=== PATIENT | female | born 1980 | race Caucasian/White ===

== ENCOUNTER 2016-09-19 17:50 | Emergency (ER) | payer MEDICAID, OTHER ==
[~2016-09-19] VITALS: Ht 172.7 cm; Wt 60.0 kg
[~2016-09-19 17:50] MED LIST: CYCL-36 PO; CYCL5TAB PO; HYDR10TA16 PO; NAPR500 PO; PERC10TA27 PO
[2016-09-19 17:52] VITALS: BP 151/86; PULSE 66; RESP 20; TEMP 97.7; O2SAT 99
[2016-09-19] MEDS ORDERED: diphenhydrAMINE HCL 50 MG/ML VIAL IVP ONE (18:15)
[2016-09-19] MEDS ORDERED: methylPREDNISolone SOD SUCC 125 MG/2 ML VIAL IV PUSH ONE (18:15)
[2016-09-19] MEDS ORDERED: SODIUM CHLORIDE 0.9% FLUSH 5 ML FLUSH IVF PRN (18:15)
[2016-09-19] MEDS ORDERED: SODIUM CHLOR 0.9% 1000 ML INJ 1,000 ML IV ONE (18:15)
[2016-09-19] MEDS ORDERED: METOCLOPRAMIDE HCL 10 MG/2 ML VIAL IVP ONE (18:15)
--- NOTE | 2016-09-19 18:21 | PD ---
HPI Chief Complaint: Headache Time Seen by Provider: 18:10 Travel History International Travel<30 days: No Contact w/Intl Traveler<30days: No Traveled to known affect area: No History of Present Illness HPI This is a 36-year-old female who presents for evaluation of a headache. Symptoms started 1 week ago. She reports that the headache seems to wax and wane but has progressively gotten worse throughout the week. She describes it as a stabbing pain in the left side of her head. She reports that sometimes the pain is really intense for a few seconds at a time and when it happened she feels like her vision goes "black" for a few seconds and then resolves. She has been using ibuprofen with minimal relief. Denies blurred vision, phonophobia, nausea, vomiting, fevers, chills, neck stiffness, rash, cough, congestion, sore throat. Denies any significant past medical history. No other complaints at this time. PFSH Past Medical History Asthma: Yes Anxiety: Yes Diminished Hearing: No ?: Not LMP: SEPTEMBER 2016 : 2 Para: 2 Social History Alcohol Use: Yes (OCC) Tobacco Use: Yes (1/2 PPD) Substance Use: No Allergies-Medications (Allergen,Severity, Reaction): Coded Allergies: Morphine (Verified Allergy, Severe, Dizziness, 09/19/16) pt states "I passed out." Reported Meds & Prescriptions Reported Meds & Active Scripts Active No Active Prescriptions or Reported Medications Review of Systems Except as stated in HPI: all other systems reviewed are Neg Physical Exam Narrative GENERAL: Pleasant well-developed well-nourished female in no acute distress alert and oriented SKIN: Warm and dry. HEAD: Atraumatic. Normocephalic. EYES: Pupils equal and round reactive to light extraocular muscles are intact. No scleral icterus. No injection or drainage. ENT: No nasal bleeding or discharge. Mucous membranes pink and moist. NECK: Trachea midline. No JVD. Supple full range of motion, no lymphadenopathy CARDIOVASCULAR: Regular rate and rhythm. No murmur appreciated. RESPIRATORY: No accessory muscle use. Clear to auscultation. Breath sounds equal bilaterally. GASTROINTESTINAL: Abdomen soft, non-tender, nondistended. MUSCULOSKELETAL: No obvious deformities. No clubbing. No cyanosis. No edema. NEUROLOGICAL: Awake and alert. No obvious cranial nerve deficits. Motor grossly within normal limits. Normal speech. Data Data Last Documented VS Vital Signs Date Time Temp Pulse Resp B/P Pulse Ox O2 Delivery O2 Flow Rate FiO2 09/19/16 17:52 97.7 66 20 151/86 99 Room Air Orders Complete Blood Count With Diff (09/19/16 18:15) Comprehensive Metabolic Panel (09/19/16 18:15) Prothrombin Time / Inr (Pt) (09/19/16 18:15) Act Partial Throm Time (Ptt) (09/19/16 18:15) Ct Brain W/O Iv Contrast(Rout) (09/19/16 18:15) Ecg Monitoring (09/19/16 18:15) Iv Access Insert/Monitor (09/19/16 18:15) Oximetry (09/19/16 18:15) Sodium Chloride 0.9% Flush (Ns Flush) (09/19/16 18:15) Ed Urine Pregnancytest Poc (09/19/16 18:15) Diphenhydramine Inj (Benadryl Inj) (09/19/16 18:15) Metoclopramide Inj (Reglan Inj) (09/19/16 18:15) Sodium Chlor 0.9% 1000 Ml Inj (Ns 1000 M (09/19/16 18:15) Methylprednisolone So Succ Inj (Solumedr (09/19/16 18:15) Labs Laboratory Tests Test 09/19/16 18:55 White Blood Count 7.9 TH/MM3 Red Blood Count 4.31 MIL/MM3 Hemoglobin 13.6 GM/DL Hematocrit 40.3 % Mean Corpuscular Volume 93.5 FL Mean Corpuscular Hemoglobin 31.6 PG Mean Corpuscular Hemoglobin 33.8 % Concent Red Cell Distribution Width 12.8 % Platelet Count 240 TH/MM3 Mean Platelet Volume 7.8 FL Neutrophils (%) (Auto) 59.2 % Lymphocytes (%) (Auto) 27.6 % Monocytes (%) (Auto) 8.0 % Eosinophils (%) (Auto) 4.1 % Basophils (%) (Auto) 1.1 % Neutrophils # (Auto) 4.7 TH/MM3 Lymphocytes # (Auto) 2.2 TH/MM3 Monocytes # (Auto) 0.6 TH/MM3 Eosinophils # (Auto) 0.3 TH/MM3 Basophils # (Auto) 0.1 TH/MM3 CBC Comment DIFF FINAL Differential Comment Prothrombin Time 10.2 SEC Prothromb Time International 0.9 RATIO Ratio Activated Partial 26.2 SEC Thromboplast Time Sodium Level 141 MEQ/L Potassium Level 4.1 MEQ/L Chloride Level 106 MEQ/L Carbon Dioxide Level 27.9 MEQ/L Anion Gap 7 MEQ/L Blood Urea Nitrogen 12 MG/DL Creatinine 1.02 MG/DL Estimat Glomerular Filtration 61 ML/MIN Rate Random Glucose 86 MG/DL Calcium Level 8.7 MG/DL Total Bilirubin 0.2 MG/DL Aspartate Amino Transf 15 U/L (AST/SGOT) Alanine Aminotransferase 18 U/L (ALT/SGPT) Alkaline Phosphatase 48 U/L Total Protein 6.8 GM/DL Albumin 3.9 GM/DL [facility] Medical Decision Making Medical Screen Exam Complete: Yes Emergency Medical Condition: Yes Medical Record Reviewed: Yes Interpretation(s) Urine test negative CBC unremarkable BMP creatinine 1.2, GFR [address] of the brainCONCLUSION: 1. No intracranial abnormality demonstrated. 2. Mild sinus disease. Differential Diagnosis Migraine, tension headache, intracranial mass, subarachnoid hemorrhage, pseudotumor cerebri, temporal arteritis, cluster headache, dehydration Narrative Course 36-year-old female presents with one-week history of waxing and waning left- sided headache. She has normal neurologic examination and she appears well on examination. Plan is for basic lab work, CT of the brain. The patient was given IV fluids and analgesics and she will be reassessed. CT of the brain is negative. Lab work is unremarkable. Upon reexamination the patient feels significantly improved, she is currently eating chips and texting on her phone. Headache is almost completely resolved. Her discretion of the headache is certainly consistent with a migraine. Recommended close outpatient follow-up with primary care physician and return for any acutely new or worsening symptoms. She is stable for discharge. Diagnosis Primary Impression: Migraine Qualified Code: G43.909 - Migraine without status migrainosus, not intractable , unspecified migraine type Additional Instructions: Stay well-hydrated and well-nourished. Follow-up with primary care physician and return for any new or worsening symptoms. Med/Other Pt SpecificInfo: No Change to Meds Scripts No Active Prescriptions or Reported Meds Disposition: 01 DISCHARGE HOME Condition: Stable Juan Carlos Law Sep 19, 2016 18:21
[2016-09-19 19:05] LABS: AUTOMATED NEUTROPHIL # 4.7 TH/MM3 (1.8-7.7); BASOPHIL # 0.1 TH/MM3 (0-0.2); BASOPHIL % 1.1 % (0.0-2.0); EOSINOPHIL # 0.3 TH/MM3 (0-0.4); EOSINOPHIL % 4.1 % (0.0-4.0); HEMATOCRIT 40.3 % (35.0-46.0); HEMO FLAGS DIFF FINAL; LYMPH % 27.6 % (9.0-44.0); LYMPHOCYTE # 2.2 TH/MM3 (1.0-4.8); MEAN CELL VOLUME 93.5 FL (80.0-100.0); MEAN CORPUSCULAR HEMOGLOBIN 31.6 PG (27.0-34.0); MEAN CORPUSCULAR HGB CONC 33.8 % (32.0-36.0); NEUT % 59.2 % (16.0-70.0); PLATELET COUNT 240 TH/MM3 (150-450); RED BLOOD COUNT 4.31 MIL/MM3 (4.00-5.30); RED CELL DISTRIBUTION WIDTH 12.8 % (11.6-17.2); WHITE BLOOD COUNT 7.9 TH/MM3 (4.0-11.0)
[2016-09-19 19:12] LABS: APTT (PATIENT) 26.2 SEC (24.3-30.1); INTERNATIONAL NORMALIZED RATIO 0.9 RATIO; PROTHROMBIN TIME - PATIENT 10.2 SEC (9.8-11.6)
[2016-09-19 19:36] LABS: ANION GAP 7 MEQ/L (5-15); AST (GOT) 15 U/L (15-37); BICARBONATE 27.9 MEQ/L (21.0-32.0); BLOOD UREA NITROGEN 12 MG/DL (7-18); CHLORIDE 106 MEQ/L (98-107); GLOMERULAR FILTRATION RATE 61 ML/MIN (>89); POTASSIUM 4.1 MEQ/L (3.5-5.1); SODIUM (NA) 141 MEQ/L (136-145)
[2016-09-19 19:39] LABS: ALKALINE PHOSPHATASE 48 U/L (45-117); ALT (GPT) 18 U/L (10-53); TOTAL BILIRUBIN ADULT 0.2 MG/DL (0.2-1.0)
--- NOTE | 2016-09-19 20:43 | RADRPT ---
EXAM DATE/TIME: 09/19/2016 20:25 [facility] COMPARISON: No previous studies available for comparison. INDICATIONS : Cephalgia. RADIATION DOSE: 42.43 CTDIvol (mGy) MEDICAL HISTORY : None SURGICAL HISTORY : None. ENCOUNTER: Initial ACUITY: 1 day PAIN SCALE: 6/10 LOCATION: cranial TECHNIQUE: Multiple contiguous axial images were obtained of the head. Using automated exposure control and adj ustment of the mA and/or kV according to patient size, radiation dose was kept as low as reasonably a chievable to obtain optimal diagnostic quality images. FINDINGS: CEREBRUM: The ventricles are normal for age. No evidence of midline shift, mass lesion, hemorrhage or acute in farction. No extra-axial fluid collections are seen. POSTERIOR FOSSA: The cerebellum and brainstem are intact. The 4th ventricle is midline. The cerebellopontine angle i s unremarkable. EXTRACRANIAL: There is mild mucoperiosteal thickening of the visualized ethmoid air cells. SKULL: The calvaria is intact. No evidence of skull fracture. CONCLUSION: 1. No intracranial abnormality demonstrated. 2. Mild sinus disease. Lyle Avalos MD on September 19, 2016 at 20:40 Board Certified Radiologist. This report was verified electronically.
[2016-09-19] MEDS ORDERED: KETOROLAC TROMETHAMINE 30 MG/ML (IVP) VIAL IV PUSH ONE (21:00)
== END 2016-09-19 22:25 | disposition home or self-care (01) ==
LOC: NEPC 17:50
DX: G43.909 Migraine, unspecified, not intractable, without status migrainosus (principal); F17.210 Nicotine dependence, cigarettes, uncomplicated
CPT/HCPCS: 70450; 80053; 84703; 85025; 85610; 85730; 96374; 96375; 99284; J1200; J1885; J2765; J2930; J7030

== ENCOUNTER 2016-10-30 13:36 | Emergency (ER) | payer MEDICAID, OTHER ==
[~2016-10-30] VITALS: Ht 172.7 cm; Wt 58.2 kg
[2016-10-30 13:38] VITALS: BP 139/94; PULSE 90; RESP 20; TEMP 99.3; O2SAT 99
--- NOTE | 2016-10-30 13:47 | PD ---
Physical Exam Date Seen by Provider: Oct 30, 2016 Time Seen by Provider: 13:40 Narrative 36 y/o female with Hx. fall onto buttocks 10 days ago while rollerskating. Patient states worsening pain in lower back with intermittent bilateral lower extremity numbness and hand numbness since. Patient ambulatory, and prefers not to sit. Patient denies weakness, bowel or bladder issues or headache. Pain now 7/10. Patient has been taking Ibuprofen without improvement. V/S Stable. Patient awaiting bed placement. Data Data Last Documented VS Vital Signs Date Time Temp Pulse Resp B/P Pulse Ox O2 Delivery O2 Flow Rate FiO2 10/30/16 13:38 99.3 90 20 139/94 99 Room Air [facility] Medical Record Reviewed: Yes Supervised Visit with RELL: Yes Scripts No Active Prescriptions or Reported Meds Condition: Stable Pb Whaley Oct 30, 2016 13:47
--- NOTE | 2016-10-30 14:04 | PD ---
HPI Chief Complaint: Injury Time Seen by Provider: 14:04 Travel History International Travel<30 days: No Contact w/Intl Traveler<30days: No Traveled to known affect area: No History of Present Illness HPI Patient 36-year-old female presents emergency department for complaints of low back pain as well as tailbone pain. Patient states the proximal LAD week ago she was at a roller skating rink and fell backwards. 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 Patient states that she's been sitting on a ring down at home but started developing some numbness and tingling in her feet as well as her bilateral upper extremities. Denies any weakness. Denies any saddle anesthesia or difficulty urinating. Denies any fevers. She denies any difficulty with stooling. Denies any head injury chest injury abdominal injury. She states the pain has been gradually worsening she's been putting ice and heat on it but nothing works. PFSH Past Medical History Asthma: Yes Anxiety: Yes Diminished Hearing: No Immunizations Current: Yes Influenza Vaccination: No ?: Not LMP: 10/18/2016 : 2 Para: 2 Social History Alcohol Use: Yes (OCC) Tobacco Use: Yes (1/2 PPD) Substance Use: No Allergies-Medications (Allergen,Severity, Reaction): Coded Allergies: Morphine (Verified Allergy, Severe, Dizziness, 10/30/16) pt states "I passed out." Reported Meds & Prescriptions Reported Meds & Active Scripts Active Campbell (Hydrocodone-Acetaminophen) 5-325 mg Tab 1 Tab PO Q6H PRN Review of Systems Except as stated in HPI: all other systems reviewed are Neg Physical Exam Narrative GENERAL: Well-developed well-nourished no apparent distress. Appears older than stated age. SKIN: Warm and dry. No ecchymosis no lacerations seen. HEAD: Atraumatic. Normocephalic. EYES: Pupils equal and round. No scleral icterus. No injection or drainage. ENT: No nasal bleeding or discharge. Mucous membranes pink and moist. NECK: Trachea midline. No JVD. CARDIOVASCULAR: Regular rate and rhythm. RESPIRATORY: No accessory muscle use. Clear to auscultation. Breath sounds equal bilaterally. GASTROINTESTINAL: Abdomen soft, non-tender, nondistended. Hepatic and splenic margins not palpable. MUSCULOSKELETAL: Extremities without clubbing, cyanosis, or edema. No obvious deformities. Minimal midline tenderness in the low T or high L-spine. No step- off appreciated. NEUROLOGICAL: Awake and alert. No obvious cranial nerve deficits. Motor grossly within normal limits. Five out of 5 muscle strength in the arms and legs. Normal speech. Ambulates even with a narrow based gait. DTRs are 2+ at patella and biceps equal bilaterally. Pulses motor and sensory equal bilaterally. PSYCHIATRIC: Appropriate mood and affect; insight and judgment normal. Data Data Last Documented VS Vital Signs Date Time Temp Pulse Resp B/P Pulse Ox O2 Delivery O2 Flow Rate FiO2 10/30/16 13:38 99.3 90 20 139/94 99 Room Air Orders Urinalysis - C+S If Indicated (10/30/16 13:46) Ed Urine Pregnancytest Poc (10/30/16 13:46) Spine, Thoracic-Ap/Lat/Sw(3vw) (10/30/16 ) Spine, Lumbar Comp W/Obliq (10/30/16 ) Pelvis, Ap Only (Routine) (10/30/16 ) MDM Medical Decision Making Medical Screen Exam Complete: Yes Emergency Medical Condition: Yes Differential Diagnosis Back fracture, pelvic fracture, degenerative disc disease, radiculopathy, cauda equina excluded clinically. Narrative Course Patient was roomed in the emergency department, Last 24 hours Impressions Thoracic Spine X-Ray 10/30/16 0000 Signed Impressions: Service Date/Time: Sunday, October 30, 2016 14:51 - CONCLUSION: Negative exam. Levar Brandt MD Pelvis X-Ray 10/30/16 0000 Signed Impressions: Service Date/Time: Sunday, October 30, 2016 14:50 - CONCLUSION: Asymmetric appearance to the left ischial tuberosity, with some angulation on the left side, but no definite fracture lucency. Recommend correlation with clinical exam for point tenderness in this area. Levar Brandt MD Lumbar Spine X-Ray 10/30/16 0000 Signed Impressions: Service Date/Time: Sunday, October 30, 2016 14:51 - CONCLUSION: No evidence of compression deformity or spondylolisthesis. Levar Brandt MD She is driving home and states she's been taking Tylenol and ibuprofen at home as well and declined anything for pain. She declined any pain medicine when offered in the emergency department. She is planning on driving home excluding any narcotic use here. Patient x-ray results were discussed with the patient and I have reviewed the findings of the pelvis x-ray with her and I think is unlikely that she has a fracture and even if this does represent a fracture it would be a full weight-bearing and nonoperative fracture. Discussed with her she needs to consider following up with an orthopedic surgeon. May need an MRI in the future as well however at this time there is no noted dictation for emergent MRI. She stable for discharge Diagnosis Primary Impression: Low back pain Qualified Code: M54.5 - Acute midline low back pain without sciatica Referrals: Quintin Vaca MD Med/Other Pt SpecificInfo: Prescription(s) given Scripts Hydrocodone-Acetaminophen (Campbell)5-325 mg Tab1 Tab PO Q6H PRN (PAIN) #15 TAB Ref 0 Prov:Edward Hernandez MD 10/30/16 Disposition: 01 DISCHARGE HOME Condition: Stable Edward Hernandez MD Oct 30, 2016 14:04
--- NOTE | 2016-10-30 15:30 | RADRPT ---
EXAM DATE/TIME: 10/30/2016 14:50 [facility] COMPARISON: No previous studies available for comparison. INDICATIONS : Pelvic Pain post fall MEDICAL HISTORY : None. SURGICAL HISTORY : ENCOUNTER: Initial ACUITY: 1 day PAIN SCORE: 9/10 LOCATION: Bilateral pelvis FINDINGS: Frontal view of the pelvis no significant rotation of the patient. Iliac wings are symmetric and int act. The proximal femora and acetabulum are intact. 2 arcuate lines are seen in the sacrum both kelsea es and are intact. There is an asymmetry to the ischial tuberosity on the left side, slightly more a ngulated on the right. No definite fracture lucency seen. The superior pubic ramus is intact bilate rally. CONCLUSION: Asymmetric appearance to the left ischial tuberosity, with some angulation on the left side, but no d efinite fracture lucency. Recommend correlation with clinical exam for point tenderness in this area . Levar Brandt MD on October 30, 2016 at 15:26 Board Certified Radiologist. This report was verified electronically.
--- NOTE | 2016-10-30 15:31 | RADRPT ---
EXAM DATE/TIME: 10/30/2016 14:51 [facility] COMPARISON: No previous studies available for comparison. INDICATIONS : Low back pain MEDICAL HISTORY : None. SURGICAL HISTORY : None. ENCOUNTER: Initial ACUITY: 1 day PAIN SCORE: 9/10 LOCATION: Bilateral Low back FINDINGS: There are 5 nonrib-bearing vertebral bodies. In lateral projection, vertebral bodies are in normal a lignment there is preservation of vertebral body height. Frontal projection, there is a mild curvatu re towards the left. Pedicles and transverse processes are intact. SI joints are symmetric. On the oblique views, the facet joints are intact. Metallic density projected over lower abdomen probably represents a umbilical ring. CONCLUSION: No evidence of compression deformity or spondylolisthesis. Levar Brandt MD on October 30, 2016 at 15:28 Board Certified Radiologist. This report was verified electronically.
--- NOTE | 2016-10-30 15:31 | RADRPT ---
EXAM DATE/TIME: 10/30/2016 14:51 [facility] COMPARISON: No previous studies available for comparison. INDICATIONS : Upper back pain MEDICAL HISTORY : None. SURGICAL HISTORY : None. ENCOUNTER: Initial ACUITY: 1 day PAIN SCORE: 10/10 LOCATION: Bilateral chest FINDINGS: There is normal alignment of the thoracic vertebral bodies. Vertebral body height is maintained. No evidence of fracture or subluxation. Pedicles are intact at all levels. The paravertebral reflecti ons are not thickened. CONCLUSION: Negative exam. Levar Brandt MD on October 30, 2016 at 15:29 Board Certified Radiologist. This report was verified electronically.
[2016-10-30] MEDS ORDERED: NORC5TAB PO (15:35)
[2016-10-30 16:12] LABS: BLOOD, URINE NEG (NEG); COMMENT (UR) CULT NOT INDICATED; CULTURE IF INDICATED CULT NOT INDICATED; GLUCOSE,URINE NEG (NEG); KETONE, URINE NEG (NEG); MUCUS URINE FEW /lpf (OCC); NITRITE,URINE NEG (NEG); PH, URINE 6.5 (5.0-8.5); URINE COLOR YELLOW (YELLW/STRAW)
== END 2016-10-30 16:07 | disposition home or self-care (01) ==
LOC: NEPD 13:36
DX: M54.5 Low back pain (principal); R20.0 Anesthesia of skin; F17.200 Nicotine dependence, unspecified, uncomplicated; Z87.09 Personal history of other diseases of the respiratory system; Z86.59 Personal history of other mental and behavioral disorders; W18.39XA Other fall on same level, initial encounter; Y93.51 Activity, roller skating (inline) and skateboarding
CPT/HCPCS: 72072; 72110; 72170; 81001; 84703; 99283

== ENCOUNTER 2017-05-14 17:25 | Emergency (ER) | payer MEDICAID ==
[~2017-05-14] VITALS: Ht 172.7 cm; Wt 58.0 kg
[~2017-05-14 17:25] MED LIST changes: -CYCL-36 PO; -CYCL5TAB PO; -HYDR10TA16 PO; -NAPR500 PO; +NORC5TAB PO; -PERC10TA27 PO
[2017-05-14 17:27] VITALS: BP 148/75; PULSE 78; RESP 16; TEMP 98.7; O2SAT 99
--- NOTE | 2017-05-14 19:35 | PD ---
HPI Chief Complaint: Pain: Acute or Chronic Time Seen by Provider: 19:24 Travel History International Travel<30 days: No Contact w/Intl Traveler<30days: No Traveled to known affect area: No History of Present Illness HPI 36-year-old white female presents to emergency department complaints of recurrent lower back pain. She states that she's had back pain on and off for some time. She states in the last 2 weeks is exacerbated. 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 She states the pain is moderate but can be severe. She states pain radiates from her tailbone up around her lower back and sometimes to her left hip. She says some increased urinary frequency but denies any hematuria, dysuria or vaginal complaints. No fever chills. No nausea vomiting. Symptoms are worse with standing, bending and movement. Some relief with remaining still. History Past Medical Histgory Narrative Medical Left hand fracture, back pain Tetanus Vaccination: < 5 Years Past Surgical History Narrative Surgical Left hand fracture with ORIF Social History Alcohol Use: Yes (OCC) Tobacco Use: Yes (1/2 PPD) Allergies-Medications (Allergen,Severity, Reaction): Coded Allergies: morphine (Unverified Allergy, Severe, Dizziness, 05/14/17) pt states "I passed out." Reported Meds & Prescriptions Reported Meds & Active Scripts Active No Active Prescriptions or Reported Medications Review of Systems General / Constitutional: No: Fever Eyes: No: Visual changes HENT: No: Headaches Cardiovascular: No: Chest Pain or Discomfort Respiratory: No: Shortness of Breath Gastrointestinal: No: Abdominal Pain Genitourinary: Positive: Frequency, No: Urgency, Dysuria, Hematuria Musculoskeletal: Positive: Arthralgias, Cramping, Pain, No: Limited ROM, Weakness, Edema Skin: No Rash Neurologic: No: Weakness Psychiatric: No: Depression Endocrine: No: Polydipsia Hematologic/Lymphatic: No: Easy Bruising Physical Exam Narrative GENERAL: Well-developed, well-nourished in no acute distress. Nontoxic appearing. HEAD: Normocephalic, atraumatic. EYES: Pupils equal round and reactive. Extraocular motions intact. No scleral icterus. No injection or drainage. ENT: TMs clear without erythema. The external auditory canals clear. Nose: clear . Posterior pharynx is pink and moist. No tonsillar edema or exudate. Uvula midline. Airway patent. NECK: Trachea midline.Supple, nontender, moves head freely. No central bony tenderness or spasm. CARDIOVASCULAR: Regular rate and rhythm without murmurs, gallops, or rubs. RESPIRATORY: Clear to auscultation. Breath sounds equal bilaterally. No wheezes , rales, or rhonchi. GASTROINTESTINAL: Abdomen soft, non-tender, nondistended. No hepato-splenomegaly , or palpable masses. No guarding. EXTREMITIES: No clubbing, cyanosis, or edema. No joint tenderness, effusion, or edema noted. BACK: No central bony tenderness palpation of dorsal lumbar spine. Patient has complaints of myofascial tenderness in the lower lumbar spine more so on the left than the right. Negative straight leg raise. No saddle anesthesia. No gross spasm. Able to heel and toe stand. Without deformity or crepitance. No flank tenderness. Data Data Last Documented VS Vital Signs Date Time Temp Pulse Resp B/P (MAP) Pulse Ox O2 Delivery O2 Flow Rate FiO2 05/14/17 17:27 98.7 78 16 148/75 (99) 99 [facility] Medical Screen Exam Complete: Yes Emergency Medical Condition: Yes Differential Diagnosis MDM: High Differential diagnoses: AAA,Fracture, sprain, strain, HNP, nerve or vascular injury, epidural abscess, pilonidal cyst, pyelonephritis, UTI, nephrolithiasis, ureterolithiasis Narrative Course A medical screening exam was performed: At the time of evaluation the presenting medical condition was determined not to be of an emergent nature. The patient was given the option of receiving additional care, but declined. Patient was given options for additional community resources from which to obtain care. The Patient Has Been advised to seek medical attention for their presenting complaint. The patient has been advised to return to the ER at any time if an emergent condition develops. Primary Impression: Encounter for medical screening examination Scripts No Active Prescriptions or Reported Meds Condition: Tj Browning May 14, 2017 19:35
== END 2017-05-14 19:44 | disposition left against medical advice (07) ==
LOC: NEPD 17:25
DX: M54.5 Low back pain (principal)
CPT/HCPCS: 99281

== ENCOUNTER → 2017-09-28 | Outpatient (CLI) | payer OTHER | LOC: HPND 10:09 | PROVIDERS: ATTEND Family Medicine | DX: O09.512 Supervision of elderly primigravida, second trimester (principal) | CPT/HCPCS: 36415; 76811; 76825; 76827; 93325 ==

== ENCOUNTER 2017-10-03 12:48 | Emergency (ER) | payer OTHER ==
[2017-10-03 13:56] VITALS: BP 113/72; PULSE 84; RESP 18; TEMP 97.6; O2SAT 99
[2017-10-03 15:02] LABS: AUTOMATED NEUTROPHIL # 9.9 TH/MM3 (1.8-7.7); BASOPHIL # 0.1 TH/MM3 (0-0.2); BASOPHIL % 0.7 % (0.0-2.0); BILIRUBIN, URINE NEG (NEG); BLOOD, URINE NEG (NEG); EOSINOPHIL # 0.2 TH/MM3 (0-0.4); EOSINOPHIL % 1.2 % (0.0-4.0); GLUCOSE,URINE NEG (NEG); HEMATOCRIT 38.6 % (35.0-46.0); HEMOGLOBIN 13.2 GM/DL (11.6-15.3); KETONE, URINE TRACE mg/dL (NEG); LYMPH % 14.1 % (9.0-44.0); LYMPHOCYTE # 1.8 TH/MM3 (1.0-4.8); MEAN CELL VOLUME 92.3 FL (80.0-100.0); MEAN CORPUSCULAR HEMOGLOBIN 31.5 PG (27.0-34.0); MEAN CORPUSCULAR HGB CONC 34.1 % (32.0-36.0); MONO % 5.8 % (0.0-8.0); MONOCYTE # 0.7 TH/MM3 (0-0.9); NEUT % 78.2 % (16.0-70.0); NITRITE,URINE NEG (NEG); PLATELET COUNT 266 TH/MM3 (150-450); RED BLOOD COUNT 4.18 MIL/MM3 (4.00-5.30); RED CELL DISTRIBUTION WIDTH 12.7 % (11.6-17.2); SQUAMOUS EPITHELIAL CELL URINE 2 /hpf (0-5); URINE COLOR YELLOW (YELLW/STRAW); URINE LEUKOCYTE ESTERASE MOD (NEG); WHITE BLOOD COUNT 12.7 TH/MM3 (4.0-11.0)
[2017-10-03 15:15] LABS: ALBUMIN 3.2 GM/DL (3.4-5.0); AST (GOT) 14 U/L (15-37); BICARBONATE 22.5 MEQ/L (21.0-32.0); BLOOD UREA NITROGEN 6 MG/DL (7-18); CALCIUM 8.7 MG/DL (8.5-10.1); CHLORIDE 107 MEQ/L (98-107); CREATININE 0.51 MG/DL (0.50-1.00); GLOMERULAR FILTRATION RATE 135 ML/MIN (>89); GLUCOSE,RANDOM 77 MG/DL (74-106); SODIUM (NA) 139 MEQ/L (136-145)
[2017-10-03 15:20] LABS: ALKALINE PHOSPHATASE 61 U/L (45-117); ALT (GPT) 17 U/L (10-53); TOTAL BILIRUBIN ADULT 0.2 MG/DL (0.2-1.0); TOTAL PROTEIN 7.1 GM/DL (6.4-8.2)
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
== END 2017-10-03 17:43 | disposition home or self-care (01) ==
LOC: NED 12:48 → NEPD 17:43
DX: O26.899 Other specified pregnancy related conditions, unspecified trimester (principal); R10.84 Generalized abdominal pain; Z3A.00 Weeks of gestation of pregnancy not specified
CPT/HCPCS: 76815; 80053; 81001; 85025; 99284

== ENCOUNTER → 2017-10-26 | Outpatient (CLI) | payer OTHER | LOC: HPND 09:47 | PROVIDERS: ATTEND Family Medicine | DX: O09.522 Supervision of elderly multigravida, second trimester (principal) | CPT/HCPCS: 76816 ==

== ENCOUNTER 2018-01-17 15:55 | Inpatient (IN) ==
[2018-01-17] MEDS ORDERED: Measles/Mumps/Rubella Vaccine Inj 0.5 ML Vial SQ ONE (16:00)
[2018-01-17] MEDS ORDERED: Diphtheria/Tetanus/Pertussis Vaccine Inj 0.5 ML Syringe IM ONE (16:00)
[2018-01-17] MEDS ORDERED: fentaNYL Citrate Inj 100 MCG/2 ML Ampul IV.PUSH ONE (17:03)
--- NOTE | 2018-01-17 18:09 | P.HPOB ---
History of Present Illness Service: January 17, 2018 Primary Care Physician: Ramiro Duvall MD, R3 Chief Complaint: Contractions History of Present Illness: Patient is a 37 year old at 38 weeks and 6 days who presents to OB triage with contractions. She reports contractions for the past two weeks with increased frequency and intensity for the past two days. She had some bloody show today and minimal fluid leakage x1 this morning. She reports appropriate movement. She has a mild headache. She denies right upper quadrant pain. She denies lower extremity edema. Weeks Gestation:: 38 Para: 2 : 3 - Inpatient Certification I certify that the inpatient services were ordered in accordance with Medicare regulations governing the order. This includes certification that hospital inpatient services are reasonable and necessary and in the case of services not specified as inpatient-only under 42 CFR 419.22(n), that they are appropriately provided as inpatient services in accordance to with the 2-midnight benchmark under 43 CFR 412.3(e) Estimated Total Length of Stay (Days): 2 Plans for Post Hospital Care: Home Review of Systems All systems are negative unless otherwise noted in HPI. [facility] - History History Provided By: Patient - Medical History Medical History: Medical History (Last Updated 01/17/18 @ 18:30 by Hilaria Becker MD, R1) Asthma - Surgical History Surgical History: Surgical History (Last Updated 01/17/18 @ 18:32 by Hilaria Becker MD, R2) H/O hand surgery - Family History Family History: Family History (Last Updated 01/17/18 @ 18:33 by Hilaria Becker MD, R2) Other No significant family history - Tobacco History Smoking Status: Smoker, status unknown Tobacco Type: Cigarettes Packs Per Day: 0.5 - Alcohol History How Often Do You Have a Drink Containing Alcohol: Monthly or less (Not currently ) - Substance Use History Substance History: No History of Abuse - Travel History History of Recent Travel: No Recent Travel in the [place] Within the Last 8 Weeks: No Recent Travel Out of the Country Within the Last 8 Weeks: No Medications and Allergies Allergies Allergy/AdvReac Type Severity Reaction Status Date / Time morphine AdvReac Severe Dizziness Verified 01/17/18 19:57 Home Medications Medication Instructions Recorded Confirmed Type prenat.vits,butch,oop-jlxi-yqolh 1 tab PO DAILY 07/10/18 07/10/18 History [ Vitamin] Active Medications: Active Medications Lactated Ringer's (Lr 1000 Ml Inj) 1,000 mls @ 125 mls/hr IV.CONT .Q8H LUPILLO Last Admin: 01/17/18 17:18 Dose: 125 mls/hr Exam Vital signs: Vital Signs 01/17/18 16:27 01/17/18 16:28 Temperature 97.5 F L Pulse Rate 79 Respiratory Rate 20 Blood Pressure 116/88 - Constitutional no acute distress - Routine HEENT Exam Head: Present: normocephalic, atraumatic Eye: Present: EOMI ENT: Present: mucous membranes moist - Routine Neck Exam Present: supple, full ROM. Absent: JVD - Routine Chest/Breast/Axilla Exam Chest wall: Absent: tenderness Breast: Absent: tenderness - Routine Respiratory Exam Present: CTA bilaterally. Absent: accessory muscle use, decreased breath sounds , respiratory distress - Routine Cardiovascular Exam Present: RRR, S1, S2. Absent: murmur, gallop - Routine Abdominal Exam Comments: Gravid, fundus non-tender - Routine Exam Comments: 5-6cm/80%/VTX/-2/bulging bag - Routine Extremities Exam Absent: edema - Routine Skin Exam Present: intact. Absent: rash - Routine Neurological Exam Present: alert, oriented X3, CN II-XII intact - Additional findings Additional findings: heart tone: 140 Moderate variability. No decelerations. Reactive. Category 1 tracing. Contractions: q3-5min. Results - Labs CBC & Chem 7: 01/17/18 17:55 Group B Strep: Negative Caprini VTE Risk Assessment Caprini VTE Risk Assessment: No/Low Risk (score <= 1) Caprini Risk Assessment Model: Point Value = 1 Point Value = 2 Point Value = 3 Point Value = 5 Age 41-60 Minor surgery BMI > 25 kg/m2 Swollen legs Varicose veins or History of unexplained or recurrent spontaneous Oral contraceptives or hormone replacement Sepsis (< 1 month) Serious lung disease, including pneumonia (< 1 month) Abnormal pulmonary function Acute myocardial infarction Congestive heart failure (< 1 month) History of inflammatory bowel disease Medical patient at bed rest Age 61-74 Arthroscopic surgery Major open surgery (> 45 min) Laparoscopic surgery (> 45 min) Malignancy Confined to bed (> 72 hours) Immobilizing plaster cast Central venous access Age >= 75 History of VTE Family history of VTE Factor V Leiden Prothrombin [id number] Lupus anticoagulant Anticardiolipin antibodies Elevated serum homocysteine Heparin-induced thrombocytopenia Other congenital or acquired thrombophilia Stroke (< 1 month) Elective arthroplasty Hip, pelvis, or leg fracture Acute spinal cord injury (< 1 month) Prophylaxis Regimen: Total Risk Factor Score Risk Level Prophylaxis Regimen 0-1 Low Early ambulation 2 Moderate Order ONE of the following: *Sequential Compression Device (SCD) *Heparin 5000 units SQ BID 3-4 Higher Order ONE of the following medications: *Heparin 5000 units SQ TID *Enoxaparin/Lovenox 40 mg SQ daily (WT < 150 kg, CrCl > 30 mL/min) *Enoxaparin/Lovenox 30 mg SQ daily (WT < 150 kg, CrCl > 10-29 mL/min) *Enoxaparin/Lovenox 30 mg SQ BID (WT < 150 kg, CrCl > 30 mL/min) AND/OR *Sequential Compression Device (SCD) 5 or more Highest Order ONE of the following medications: *Heparin 5000 units SQ TID (Preferred with Epidurals) *Enoxaparin/Lovenox 40 mg SQ daily (WT < 150 kg, CrCl > 30 mL/min) *Enoxaparin/Lovenox 30 mg SQ daily (WT < 150 kg, CrCl > 10-29 mL/min) *Enoxaparin/Lovenox 30 mg SQ BID (WT < 150 kg, CrCl > 30 mL/min) AND *Sequential Compression Device (SCD) Assessment and Plan - Diagnosis (1) Admitted to labor and delivery Code(s): Z78.9 - Other specified health status Status: Acute - Plan Patient is a 37 year old at 38 weeks and 6 days who presents to OB triage with contractions. * Admit to Labor and Delivery. * Routine intrapartum care. * GBS negative. * Category 1 tracing. * Patient desires epidural. * Patient's OB provider, Dr. Duvall, contacted. OB hospitalist. - Attending Attestation The patient was seen and evaluated by me and I participated in all vinson decision making, will admit for labor at term, continue monitoring, anticipate . Discussed risks of , risks and indications of delivery. SMS
[2018-01-17] MEDS ORDERED: Oxytocin 30 Units/500ml Premix 30 UNITS/500 ML BAG IV.SIG ONE (18:10)
[2018-01-17] MEDS ORDERED: Sod Chloride 0.9% Inj 1,000 ML IV.CONT PRN (18:10)
[2018-01-17] MEDS ORDERED: Naloxone Inj 0.4 MG/ML Vial IV.PUSH PRN ×2 (18:10→22:59)
[2018-01-17] MEDS ORDERED: Sodium Chlor 0.9% Inj 500 ML IV.SIG PRN (18:10)
[2018-01-17] MEDS ORDERED: fentaNYL Citrate Inj 100 MCG/2 ML Ampul IV.PUSH PRN ×2 (18:10)
[2018-01-17] MEDS ORDERED: Citric Acid/Sodium Citrate Liq 30 ML UDC PO SCH (18:15)
[2018-01-17 18:31] LABS: Baso # (Auto) 0.1 th/mm3 (0.0-0.2); Baso % (Auto) 0.8 % (0.0-2.0); Eos % (Auto) 0.4 % (0.0-4.0); Hemoglobin 13.7 gm/dL (11.6-15.3); Lymph # (Auto) 1.6 th/mm3 (1.0-4.8); Lymph % (Auto) 16.2 % (9.0-44.0); Mean Corpuscular HGB Conc 33.5 % (32.0-36.0); Mean Corpuscular Volume 92.7 fL (80.0-100.0); Mean Platelet Volume 9.5 fL (7.0-11.0); Mono # (Auto) 0.7 th/mm3 (0.0-0.9); Mono % (Auto) 6.8 % (0.0-8.0); Neut # (Auto) 7.7 th/mm3 (1.8-7.7); Neut % (Auto) 75.8 % (16.0-70.0); Platelet Count 260 th/mm3 (150-450); Red Blood Count 4.42 mil/mm3 (4.00-5.30); White Blood Count 10.2 th/mm3 (4.0-11.0)
[2018-01-17] MEDS ORDERED: fentaNYL 2MCG-Bupiv 0.125% Epi 150 ML EPIDURAL ONE (19:02)
[2018-01-17 20:40] LABS: Bilirubin,Urine Negative (Negative); Clarity,Urine Hazy (Clear); Color,Urine Amber (Yellw/Straw); Glucose,Urine (UA) Negative (Negative); Leukocyte Esterase,Urine Small (Negative); Mucus,Urine Few /lpf (Occasional); Nitrite,Urine Negative (Negative); Specific Gravity,Urine 1.024 (1.002-1.035); Squamous Epithelial Cell,Urine 9 /hpf (0-5); Urobilinogen,Urine 4 or Greater mg/dL (Less than 2)
[2018-01-17] MEDS ORDERED: fentaNYL Citrate Inj 100 MCG/2 ML Ampul EPIDURAL ONE (21:24)
[2018-01-17] MEDS ORDERED: fentaNYL 2MCG-Bupiv 0.125% Epi 150 ML EPIDURAL PRN ×3 (21:42→22:00)
[2018-01-17 21:43] LABS: Amphetamine Urine With Conf Neg (Neg); Benzodiazepine Urine With Conf Neg (Neg)
--- NOTE | 2018-01-17 21:59 | P.OBLABOR ---
Subjective Interval history: Patient evaluated by OB team. Epidural in place without complications with appropriate pain control. She endorses good movement and is currently without complaints. Objective Vital Signs: Vital Signs - 8 hr 01/17/18 16:27 01/17/18 16:28 01/17/18 19:10 Temperature 97.5 F L Pulse Rate 79 90 Respiratory Rate 20 Blood Pressure 116/88 146/85 H 01/17/18 19:25 01/17/18 19:55 01/17/18 20:10 Temperature Pulse Rate 76 87 85 Respiratory Rate Blood Pressure 115/63 111/65 01/17/18 20:15 01/17/18 20:30 01/17/18 21:16 Temperature 97.7 F Pulse Rate 84 80 Respiratory Rate 15 Blood Pressure 120/61 109/63 01/17/18 21:31 Temperature Pulse Rate 81 Respiratory Rate Blood Pressure 106/71 Objective: Pelvic Exam: Cervix: Mid position Dilatation: 6 cm Effacement: 80% Station: -2 Presentation: Vertex Membranes: AROM completed with clear fluid Uterine Contractions: Every 2-4 minutes FHT's: Category: 1 Baseline: 120s Reactive: Positive Variability: Moderate Decels: None Artificial Rupture of Membrane: Yes (Clear) Artificial ROM Date: 01/17/18 Artificial ROM Time: 21:40 Assessment and Plan - Diagnosis (1) Admitted to labor and delivery Code(s): Z78.9 - Other specified health status Status: Acute - Plan Patient is a 37 year old at 38 weeks and 6 days who presents to OB triage with contractions. * Continue routine intrapartum care. * GBS negative. * Category 1 tracing. * Epidural in place without complications, appropriate pain control currently * UDS positive for marijuana * AROM completed with clear fluid, uncomplicated procedure SDW: Dr. Juarez - Attending Attestation Continue labor management, reassuring status, anticipate . SMS
[2018-01-17] MEDS ORDERED: Lidocaine PF 1% Inj 30 ML Vial ONE (22:00)
--- NOTE | 2018-01-17 22:47 | P.PN ---
Subjective Interval history: The patient quickly progressed with reassuring heart tones to complete/ complete/+2 after AROM. The patient commenced spontaneous maternal expulsive efforts with overall reassuring heart tones and with subsequent atraumatic and spontaneous delivery of the head followed by atraumatic and spontaneously delivery of the anterior shoulder and remainder of the . The was vigorous at delivery and was placed on the maternal abdomen. The cord was doubly clamped and cut after a delay of 45 seconds. Cord blood was obtained for the nursery and the placenta delivered spontaneously. The placenta appeared to be intact. No lacerations were noted except a superficial labial laceration as noted in delivery report. The and mother are both doing well. I was present and scrubbed for all vinson portions of the procedure. Physical Exam Vital signs: Vital Signs 01/17/18 16:27 01/17/18 16:28 01/17/18 19:10 Temperature 97.5 F L Pulse Rate 79 90 Respiratory Rate 20 Blood Pressure 116/88 146/85 H 01/17/18 19:25 01/17/18 19:55 01/17/18 20:10 Temperature Pulse Rate 76 87 85 Respiratory Rate Blood Pressure 115/63 111/65 01/17/18 20:15 01/17/18 20:30 01/17/18 21:16 Temperature 97.7 F Pulse Rate 84 80 Respiratory Rate 15 Blood Pressure 120/61 109/63 01/17/18 21:31 01/17/18 22:00 01/17/18 22:16 Temperature Pulse Rate 81 70 Respiratory Rate Blood Pressure 106/71 113/71 113/75 Intake & Output 01/17/18 01/17/18 01/18/18 06:59 18:59 06:59 Weight 70.76 kg Results - Labs CBC & Chem 7: 01/17/18 17:55 Laboratory Results - last 24 hr 01/17/18 01/17/18 01/17/18 17:10 17:10 17:55 WBC 10.2 RBC 4.42 Hgb 13.7 Hct 41.0 MCV 92.7 MCH 31.0 MCHC 33.5 RDW 13.0 Plt Count 260 MPV 9.5 Neut % (Auto) 75.8 H Lymph % (Auto) 16.2 [place] % (Auto) 6.8 Eos % (Auto) 0.4 Baso % (Auto) 0.8 Neut # (Auto) 7.7 Lymph # (Auto) 1.6 [place] # (Auto) 0.7 Eos # (Auto) 0.0 Baso # (Auto) 0.1 WBC Differential . Differential Comment Auto diff final Urine Color Beata Urine Clarity Hazy H Urine pH 6.0 Ur Specific [place] 1.024 Urine Protein 30 H Urine Glucose (UA) Negative Urine Ketones Trace H Urine Occult Blood Moderate H Urine Nitrate Negative Urine Bilirubin Negative Urine Urobilinogen 4 or greater Ur Leukocyte Esterase Small H Urine RBC 1 Urine WBC 7 H Ur Squamous Epith Cells 9 Urine Mucus Few H Micro UA Comment Culture not ind Urine Culture Comments Culture not ind Urine Opiates Screen Neg Ur Barbiturates Screen Neg Ur Amphetamine Screen Neg U Benzodiazepines Scrn Neg Urine Cocaine Screen Neg U Cannabinoids Screen Pos H Blood Type 01/17/18 18:11 WBC RBC Hgb Hct MCV MCH MCHC RDW Plt Count MPV Neut % (Auto) Lymph % (Auto) [place] % (Auto) Eos % (Auto) Baso % (Auto) Neut # (Auto) Lymph # (Auto) [place] # (Auto) Eos # (Auto) Baso # (Auto) WBC Differential Differential Comment Urine Color Urine Clarity Urine pH Ur Specific [place] Urine Protein Urine Glucose (UA) Urine Ketones Urine Occult Blood Urine Nitrate Urine Bilirubin Urine Urobilinogen Ur Leukocyte Esterase Urine RBC Urine WBC Ur Squamous Epith Cells Urine Mucus Micro UA Comment Urine Culture Comments Urine Opiates Screen Ur Barbiturates Screen Ur Amphetamine Screen U Benzodiazepines Scrn Urine Cocaine Screen U Cannabinoids Screen Blood Type A Positive
[2018-01-17] MEDS ORDERED: Zolpidem Tartrate 5 MG Tablet PO PRN (22:59)
[2018-01-17] MEDS ORDERED: Acetaminophen 325 MG Tablet PO PRN (22:59)
[2018-01-17] MEDS ORDERED: Witch Hazel 50%/Glyderin 12.5% 40 Pad Jar RECTAL PRN (22:59)
[2018-01-17] MEDS ORDERED: Benzocaine 20% Top Spray 60 ML Can TOPICAL PRN (22:59)
[2018-01-17] MEDS ORDERED: Bisacodyl 10 MG Supp RECTAL PRN (22:59)
--- NOTE | 2018-01-17 22:59 | P.OBDELI ---
Weeks Gestation: 38 Patient Started Active Labor: Yes Medical Induction of Labor: No Artificial Rupture of Membrane: Yes (Clear) Anesthesia: Epidural Episiotomy: none Vaginal Delivery: Normal Presentation: Occiput anterior Nuchal Cord: None Delayed Cord Clamping (45 sec): Yes Placenta: Spontaneous delivery Laceration: None (Superficial small tears on superior R introitus and L lateral introitus not requiring repair; rapid hemostasis obtained with pressure) Estimated blood loss (mL): 50 Infant: Male Additional Information: APGARs: 9/9 Weight deferred for skin to skin SDW: Dr. Larry Alegria was present and scrubbed for the procedure. SMS
[2018-01-17] MEDS ORDERED: Oxytocin 30 Units/500ml Premix 30 UNITS/500 ML BAG IV.CONT SCH (23:00)
[2018-01-18] MEDS ORDERED: Senna/Docusate Sodium 8.6/50 MG Tablet PO SCH (09:00)
[2018-01-18] MEDS: Ibuprofen 400 MG Tablet PO PRN ×2 (10:44→20:03)
--- NOTE | 2018-01-18 17:19 | P.PNOB ---
Subjective Post day: 1 Interval history: Pt seen and examined this morning. day # 1 AFVSS overnight. Decreased lochia. Denies dysuria. No breast tenderness. She is feeding the baby via breast. Had a thorough discussion about feeding while marijuana positive as it is against medical advice. Appetite good. No nausea or vomiting. Patient has not yet had a bowel movement or flatus. Ambulating well. Denies calf pain or shortness of breath. Otherwise, she is doing well this morning and has no other concerns. Objective Vital Signs/I&O: Vital Signs 01/17/18 19:10 01/17/18 19:25 01/17/18 19:55 Temperature Pulse Rate 90 76 87 Respiratory Rate Blood Pressure 146/85 H 115/63 111/65 01/17/18 20:10 01/17/18 20:15 01/17/18 20:30 Temperature 97.7 F Pulse Rate 85 84 Respiratory Rate 15 Blood Pressure 120/61 01/17/18 21:16 01/17/18 21:31 01/17/18 22:00 Temperature Pulse Rate 80 81 Respiratory Rate Blood Pressure 109/63 106/71 113/71 01/17/18 22:16 01/17/18 22:46 01/17/18 23:00 Temperature Pulse Rate 70 84 Respiratory Rate 18 Blood Pressure 113/75 132/92 H 01/17/18 23:01 01/17/18 23:16 01/17/18 23:28 Temperature 98.6 F Pulse Rate 88 92 H Respiratory Rate 15 Blood Pressure 107/82 113/72 01/17/18 23:31 01/17/18 23:45 01/18/18 01:00 Temperature 97.8 F Pulse Rate 73 70 65 Respiratory Rate 17 Blood Pressure 92/44 L 111/66 111/72 Intake & Output 01/17/18 01/18/18 01/18/18 18:59 06:59 18:59 Weight 70.76 kg Result Diagrams: 01/17/18 17:55 Objective Remarks: GENERAL: Well-nourished, well-developed patient. CARDIOVASCULAR: Regular rate and rhythm without murmurs, gallops, or rubs. RESPIRATORY: Breath sounds equal bilaterally. No accessory muscle use. ABDOMEN/GI: Abdomen soft, non-tender. Fundus: Firm, non-tender at umbilicus. GENITOURINARY: Light to moderate bleeding. EXTREMITIES: No cyanosis or edema, non-tender, without signs of DVT. Medications and IVs: Active Medications Acetaminophen (Tylenol) 650 mg PO Q4H PRN PRN Reason: PAIN SCALE 1 TO 2 Al Hydroxide/Mg Hydroxide (Milk Of Magnesia Liq) 30 ml PO Q12H PRN PRN Reason: Mild Constipation Benzocaine (Americaine 20% Top [place]) 1 spray TOPICAL Q4H PRN PRN Reason: For Perineum Discomfort Bisacodyl (Dulcolax Supp) 10 mg RECTAL DAILY PRN PRN Reason: SEVERE CONSITIPATION Citric Acid/Sodium Citrate (Sodium Citrate/Citric Acid Liq) 30 ml PO [employer] [facility] Stop: 01/21/18 18:14 Ephedrine Sulfate (Ephedrine/Ns Syringe) 10 mg IV.PUSH UNSCH PRN PRN Reason: SEE LABEL COMMENTS Stop: 01/18/18 21:25 Fentanyl Citrate (Fentanyl Inj) 100 mcg IV.PUSH Q1H PRN PRN Reason: PAIN SCALE 6 TO 10 Fentanyl Citrate (Fentanyl Inj) 50 mcg IV.PUSH Q1H PRN PRN Reason: Pain Scale 3 - 5 Lactated Ringer's (Lr 1000 Ml Inj) 1,000 mls @ 125 mls/hr IV.CONT .Q8H [facility] Last Admin: 01/17/18 17:18 Dose: 125 mls/hr Lactated Ringer's (Lr 1000 Ml Inj) 1,000 mls @ 125 mls/hr IV.CONT .Q8H [facility] Last Admin: 01/17/18 21:51 Dose: 125 mls/hr Lactated Ringer's (Lr 1000 Ml Inj) 1,000 mls @ 3,000 mls/hr IV.SIG UNSCH PRN PRN Reason: compromise or epidural Sodium Chloride (Ns Inj) 500 mls @ 1,000 mls/hr IV.SIG UNSCH PRN PRN Reason: SEE LABEL COMMENTS Sodium Chloride (Ns Inj) 1,000 mls @ 100 mls/hr IV.CONT .Q10H PRN PRN Reason: SEE LABEL COMMENTS Fentanyl/Bupivacaine/Sodium Chlor (Fentanyl 2 Mcg-Bupiv 0.125% Epi) 150 mls @ 11 mls/hr EPIDURAL PRN PRN PRN Reason: for Labor Pain Last Admin: 01/17/18 21:51 Dose: 11 mls/hr Lidocaine HCl (Xylocaine 1% Inj) 0.1 ml I-DERMAL PRN PRN PRN Reason: For IV start Stop: 01/20/18 18:09 Lidocaine HCl (Xylocaine 1% Inj) 10 ml INFILTRATN PRN PRN PRN Reason: For episiotomy repair Stop: 01/19/18 18:09 Mineral Oil (Muri-Lube Oil) 10 ml TOPICAL PRN PRN PRN Reason: PRN perineal massage Miscellaneous Information (Misc Information) 1 each OTHER UNSCH PRN PRN Reason: SEE LABEL COMMENTS Stop: 01/18/18 21:25 Miscellaneous Information (Misc Information) 1 each OTHER UNSCH PRN PRN Reason: SEE LABEL COMMENTS Stop: 01/18/18 21:25 Naloxone HCl (Narcan Inj) 0.1 mg IV.PUSH Q2M PRN PRN Reason: for opiate reversal Naloxone HCl (Narcan Inj) 0.1 mg IV.PUSH Q2M PRN PRN Reason: for opiate reversal Ondansetron HCl (Zofran Odt) 4 mg PO Q6H PRN PRN Reason: NAUSEA OR VOMITING Ondansetron HCl (Zofran Odt) 4 mg PO Q6H PRN PRN Reason: NAUSEA OR VOMITING Senna/Docusate Sodium ([place]osalinda-Colace) 1 tab PO BID LUPILLO Sennosides (Senokot) 17.2 mg PO Q12H PRN PRN Reason: Moderate Constipation Sodium Chloride (Ns Flush) 2 ml IV.FLUSH PRN PRN PRN Reason: FLUSH AFTER USING IV ACCESS Sodium Chloride (Ns Flush) 2 ml IV.FLUSH BID LUPILLO [place]/Glycerin (Tucks Pads) 1 applicatio RECTAL QID PRN PRN Reason: HEMORRHOIDS Zolpidem Tartrate (Ambien) 5 mg PO HS PRN PRN Reason: SLEEP Assessment and Plan - Diagnosis (1) Admitted to labor and delivery Code(s): Z78.9 - Other specified health status Status: Acute - Plan 37y/o female who is PPD# 1 s/p . -Continue routine care. -Motrin PRN pain. -Encouraged OOB. Advised pelvic rest for 6 wks. -Anticipate discharge tomorrow pending clinical course. DW: Dr. Juarez - Attending Attestation I personally saw and evaluated patient and participated in all vinson decision making. Continue routine care. Anticipate discharge tomorrow. SMS
[2018-01-18 19:35] LABS: Bilirubin,Urine Negative (Negative); Clarity,Urine Clear (Clear); Color,Urine Yellow (Yellw/Straw); Glucose,Urine (UA) Negative (Negative); Leukocyte Esterase,Urine Small (Negative); Mucus,Urine Few /lpf (Occasional); Nitrite,Urine Negative (Negative); Specific Gravity,Urine 1.013 (1.002-1.035); Squamous Epithelial Cell,Urine <1 /hpf (0-5)
--- NOTE | 2018-01-19 08:24 | P.PNOB ---
Subjective Post day: 2 Interval history: Pt seen and examined this morning. day # 2 AFVSS overnight. Decreased lochia. Denies dysuria. No breast tenderness. She is feeding the baby via breast. Patient was marijuana positive and recommended against breast- feeding due to THC. She voiced verbal understanding of risks involved with all questions answered. Appetite good. No nausea or vomiting. Patient endorses having a bowel movement without complications and continues to pass gas. Ambulating well. Denies calf pain or shortness of breath. Otherwise, she is doing well this morning and has no other concerns. Objective Vital Signs/I&O: Vital Signs 01/18/18 20:00 Temperature 98.3 F Pulse Rate 81 Respiratory Rate 18 Blood Pressure 104/70 Result Diagrams: 01/17/18 17:55 Objective Remarks: GENERAL: Well-nourished, well-developed patient. CARDIOVASCULAR: Regular rate and rhythm without murmurs, gallops, or rubs. RESPIRATORY: Breath sounds equal bilaterally. No accessory muscle use. ABDOMEN/GI: Abdomen soft, non-tender. Fundus: Firm, non-tender at umbilicus. GENITOURINARY: Light to moderate bleeding. EXTREMITIES: No cyanosis or edema, non-tender, without signs of DVT. Medications and IVs: Active Medications Acetaminophen (Tylenol) 650 mg PO Q4H PRN PRN Reason: PAIN SCALE 1 TO 2 Al Hydroxide/Mg Hydroxide (Milk Of Magnesia Liq) 30 ml PO Q12H PRN PRN Reason: Mild Constipation Benzocaine (Americaine 20% Top Naselle) 1 spray TOPICAL Q4H PRN PRN Reason: For Perineum Discomfort Bisacodyl (Dulcolax Supp) 10 mg RECTAL DAILY PRN PRN Reason: SEVERE CONSITIPATION Citric Acid/Sodium Citrate (Sodium Citrate/Citric Acid Liq) 30 ml PO [employer] [facility] Stop: 01/21/18 18:14 Fentanyl Citrate (Fentanyl Inj) 100 mcg IV.PUSH Q1H PRN PRN Reason: PAIN SCALE 6 TO 10 Fentanyl Citrate (Fentanyl Inj) 50 mcg IV.PUSH Q1H PRN PRN Reason: Pain Scale 3 - 5 Lactated Ringer's (Lr 1000 Ml Inj) 1,000 mls @ 125 mls/hr IV.CONT .Q8H [facility] Last Admin: 01/17/18 17:18 Dose: 125 mls/hr Lactated Ringer's (Lr 1000 Ml Inj) 1,000 mls @ 125 mls/hr IV.CONT .Q8H [facility] Last Admin: 01/17/18 21:51 Dose: 125 mls/hr Lactated Ringer's (Lr 1000 Ml Inj) 1,000 mls @ 3,000 mls/hr IV.SIG UNSCH PRN PRN Reason: compromise or epidural Sodium Chloride (Ns Inj) 500 mls @ 1,000 mls/hr IV.SIG UNSCH PRN PRN Reason: SEE LABEL COMMENTS Sodium Chloride (Ns Inj) 1,000 mls @ 100 mls/hr IV.CONT .Q10H PRN PRN Reason: SEE LABEL COMMENTS Fentanyl/Bupivacaine/Sodium Chlor (Fentanyl 2 Mcg-Bupiv 0.125% Epi) 150 mls @ 11 mls/hr EPIDURAL PRN PRN PRN Reason: for Labor Pain Last Admin: 01/17/18 21:51 Dose: 11 mls/hr Lidocaine HCl (Xylocaine 1% Inj) 0.1 ml I-DERMAL PRN PRN PRN Reason: For IV start Stop: 01/20/18 18:09 Lidocaine HCl (Xylocaine 1% Inj) 10 ml INFILTRATN PRN PRN PRN Reason: For episiotomy repair Stop: 01/19/18 18:09 Mineral Oil (Muri-Lube Oil) 10 ml TOPICAL PRN PRN PRN Reason: PRN perineal massage Naloxone HCl (Narcan Inj) 0.1 mg IV.PUSH Q2M PRN PRN Reason: for opiate reversal Naloxone HCl (Narcan Inj) 0.1 mg IV.PUSH Q2M PRN PRN Reason: for opiate reversal Ondansetron HCl (Zofran Odt) 4 mg PO Q6H PRN PRN Reason: NAUSEA OR VOMITING Ondansetron HCl (Zofran Odt) 4 mg PO Q6H PRN PRN Reason: NAUSEA OR VOMITING Senna/Docusate Sodium (Rosalinda-Colace) 1 tab PO BID [facility] Last Admin: 01/18/18 09:00 Dose: Not Given Sennosides (Senokot) 17.2 mg PO Q12H PRN PRN Reason: Moderate Constipation Sodium Chloride (Ns Flush) 2 ml IV.FLUSH PRN PRN PRN Reason: FLUSH AFTER USING IV ACCESS Sodium Chloride (Ns Flush) 2 ml IV.FLUSH BID [facility] Witch [place]/Glycerin (Tucks Pads) 1 applicatio RECTAL QID PRN PRN Reason: HEMORRHOIDS Zolpidem Tartrate (Ambien) 5 mg PO HS PRN PRN Reason: SLEEP Assessment and Plan - Diagnosis (1) Admitted to labor and delivery Code(s): Z78.9 - Other specified health status Status: Acute - Plan 37y/o female who is PPD# 2 s/p . -Continue routine care. -Motrin PRN pain. -Patient with dysuria yesterday, improved today. UC pending, will plan to treat depending on results -Encouraged OOB. Advised pelvic rest for 6 wks. -Anticipate discharge late today pending clinical course. DW: Dr. Pelayo
[2018-01-19] MEDS: Ibuprofen 400 MG Tablet PO PRN (15:54)
== END 2018-01-19 18:19 | disposition home or self-care (01) ==
LOC: HOBED 15:55 → H2E 18:00 → H1EA 01-18 00:59
PROVIDERS: ADMIT Obstetrics & Gynecology; ATTEND Obstetrics & Gynecology